=== PATIENT | female | born 1970 | race Caucasian/White ===

== ENCOUNTER 2016-10-08 18:07 | Emergency (ER) | payer BC, SELFPAY ==
[2016-10-08] MEDS ORDERED: HYDROcodone/Acetaminophen 10/325 mg Tablet ONE (18:49)
[2016-10-08] MEDS ORDERED: Ibuprofen 800 MG TAB ONE (18:50)
--- NOTE | 2016-10-09 05:45 | RAD ---
LEFT WRIST THREE VIEWS O1 No fracture was seen. The carpal bones all appeared intact, and the carpal relations are normal. IMPRESSION: No acute bony findings. POS: HOME
--- NOTE | 2016-10-09 05:50 | RAD ---
LEFT ANKLE THREE VIEWS O17 Soft tissue swelling is present. No acute fractures were seen. The ankle joint appears intact. Tw o metallic flecks are seen beneath the medial malleolus. I cannot tell if they are film artifact or real. IMPRESSION: Soft tissue swelling. POS: HOME
== END 2016-10-08 19:22 | disposition home or self-care (01) ==
LOC: BURERS 18:07
DX: S63.502A Unspecified sprain of left wrist, initial encounter (principal); S90.02XA Contusion of left ankle, initial encounter; S90.512A Abrasion, left ankle, initial encounter; S90.812A Abrasion, left foot, initial encounter; I10 Essential (primary) hypertension; V86.69XA Passenger of other special all-terrain or other off-road motor vehicle injured in nontraffic accident, initial encounter; Y92.828 Other wilderness area as the place of occurrence of the external cause
CPT/HCPCS: 29515

== ENCOUNTER 2016-10-21 18:22 | Emergency (ER) | payer SELFPAY ==
[2016-10-21] MEDS ORDERED: Sulfameth/Trimethoprim DS 800-160mg TAB ONE (18:52)
[2016-10-21] MEDS ORDERED: cefTRIAXone\\ROCEPHIN 1 GM VIAL ONE (18:52)
[2016-10-21] MEDS ORDERED: Lidocaine 1% 20 ML MDV ONE (18:52)
[2016-10-21] MEDS ORDERED: Adacel (T-DAP) 0.5 ML VIAL ONE (19:33)
== END 2016-10-21 20:00 | disposition home or self-care (01) ==
LOC: BURERS 18:22
DX: L03.116 Cellulitis of left lower limb (principal); I10 Essential (primary) hypertension; Z79.899 Other long term (current) drug therapy; Z86.73 Personal history of transient ischemic attack (TIA), and cerebral infarction without residual deficits
CPT/HCPCS: 87070; 87205; 90471; 90715; 96372; J0696; J2001

== ENCOUNTER 2016-10-23 14:24 | Emergency (ER) | payer SELFPAY ==
[2016-10-23] MEDS ORDERED: Bacitracin Zinc 1 Packet ONE (14:32)
== END 2016-10-23 14:47 | disposition home or self-care (01) ==
LOC: BURERS 14:24
DX: L03.116 Cellulitis of left lower limb (principal); M76.62 Achilles tendinitis, left leg; I10 Essential (primary) hypertension
CPT/HCPCS: 99283

== ENCOUNTER 2017-01-07 13:29 | Emergency (ER) | payer SELFPAY | END 2017-01-07 16:00 | disposition home or self-care (01) | LOC: BURERS 13:29 | DX: L02.212 Cutaneous abscess of back [any part, except buttock and flank] (principal); I10 Essential (primary) hypertension | CPT/HCPCS: 10060 ==

== ENCOUNTER 2017-01-11 06:36 | Emergency (ER) | payer SELFPAY | END 2017-01-11 07:14 | disposition home or self-care (01) | LOC: BURERS 06:36 | DX: Z48.817 Encounter for surgical aftercare following surgery on the skin and subcutaneous tissue (principal); I10 Essential (primary) hypertension | CPT/HCPCS: 99282 ==

== ENCOUNTER 2017-05-26 11:01 | Emergency (ER) | payer SELFPAY ==
--- NOTE | 2017-05-26 20:01 | RAD ---
RIGHT HAND THREE VIEWS: Date: 05-26-17 FINDINGS: A slightly comminuted nondisplaced fracture is seen at the base of the fifth metacarpal. The remainde r of the hand and wrist appear intact. The carpal relations appear normal. IMPRESSION: Relatively nondisplaced fracture at the base of the fifth metacarpal. Code T POS: HOME
== END 2017-05-26 11:30 | disposition home or self-care (01) ==
LOC: BURERS 11:01
DX: S62.346A Nondisplaced fracture of base of fifth metacarpal bone, right hand, initial encounter for closed fracture (principal); I10 Essential (primary) hypertension; Z86.73 Personal history of transient ischemic attack (TIA), and cerebral infarction without residual deficits; W54.1XXA Struck by dog, initial encounter
CPT/HCPCS: 26600

== ENCOUNTER 2017-07-13 10:40 | Emergency (ER) | payer SELFPAY ==
--- NOTE | 2017-07-13 19:56 | RAD ---
RIGHT HAND FOUR VIEWS 07/13/17 Comparison is made with the 05/26/17 study. Fracture at the base of the fifth metacarpal is again seen and shows signs of healing. I do not see a ny evidence of refracture or new fractures since the last exam. The remainder of the hand and wrist a ppears normal. IMPRESSION: Healing fracture at the base of the fifth metacarpal. No evidence of more recent bony injury. POS: HOME
== END 2017-07-13 11:13 | disposition home or self-care (01) ==
LOC: BURERS 10:40
DX: S62.316A Displaced fracture of base of fifth metacarpal bone, right hand, initial encounter for closed fracture (principal); I10 Essential (primary) hypertension; Z86.73 Personal history of transient ischemic attack (TIA), and cerebral infarction without residual deficits; W18.30XA Fall on same level, unspecified, initial encounter

== ENCOUNTER 2018-08-24 01:28 | Emergency (ER) | payer SELFPAY ==
[2018-08-24] MEDS ORDERED: Sulfameth/Trimethoprim DS 800-160mg TAB ONE (01:41)
[2018-08-24] MEDS ORDERED: Cephalexin 500 MG CAP ONE (01:41)
== END 2018-08-24 01:46 | disposition home or self-care (01) ==
LOC: BURERS 01:28
DX: L03.114 Cellulitis of left upper limb (principal); I10 Essential (primary) hypertension; Z86.73 Personal history of transient ischemic attack (TIA), and cerebral infarction without residual deficits; Z87.891 Personal history of nicotine dependence
CPT/HCPCS: 99283

== ENCOUNTER 2021-05-18 04:33 | Emergency (ER) | payer SELFPAY ==
[2021-05-18 05:19] LABS: Bilirubin Negative (Negative); Blood, Urine Trace (Negative); Clarity Cloudy (Clear); Glucose, Urine (Dipstick) Negative (Negative); Ketone, Urine Negative (Negative); Leukocyte Large (Negative); Nitrite Positive (Negative); Protein, Urine (Dipstick) Trace mg/dL (Neg-Trace); Specific Gravity, Urine 1.015 (1.005-1.030); Urobilinogen 0.2 mg/dL (Less than 2); pH, Urine 6.5 (5.0-9.0)
[2021-05-18] MEDS ORDERED: cefTRIAXone\\ROCEPHIN 1 GM VIAL ONE (05:26)
[2021-05-18] MEDS ORDERED: Lidocaine 1% PF 5 ML VIAL ONE (05:27)
[2021-05-18 05:30] LABS: Bacteria/HPF 3+ HPF (None Seen); RBC/HPF 0-3 HPF (0-3); Yeast-Budding None Seen HPF (None Seen); Yeast-Hyphae None Seen HPF (None Seen)
[2021-05-18 05:31] LABS: Mucous/LPF 1+ LPF (<2+)
[2021-05-18] MEDS ORDERED: Ciprofloxacin 500 MG TAB ONE (05:36)
[2021-05-18 18:36] LABS: SARS-CoV-2 PCR by NAA DETECTED (NotDetected)
== END 2021-05-18 05:47 | disposition home or self-care (01) ==
LOC: BURERS 04:33
DX: U07.1 COVID-19 (principal); J18.9 Pneumonia, unspecified organism; N10 Acute pyelonephritis; I10 Essential (primary) hypertension; Z86.73 Personal history of transient ischemic attack (TIA), and cerebral infarction without residual deficits; Z87.891 Personal history of nicotine dependence; Z79.899 Other long term (current) drug therapy
CPT/HCPCS: 71046; 81003; 81015; 87086; 96372; J0696; U0003; U0005

== ENCOUNTER 2021-05-21 16:30 | Emergency (ER) | payer SELFPAY ==
[2021-05-21] MEDS ORDERED: Ondansetron PF 4 MG/2 ML Vial ONE (17:50)
[2021-05-21 17:56] LABS: #Eosinphils 0.1 thou/uL (0.0-0.7); #Lymphocytes 1.3 thou/uL (1.20-3.40); #Monocytes 0.5 thou/uL (0.11-0.59); #Neutrophils 4.4 thou/uL (1.40-6.50); %Basophils 0.4 % (0.0-1.0); %Lymphocytes 19.8 % (21.0-51.0); %Monocytes 8.2 % (0.0-10.0); %Neutrophils 69.6 % (42.0-75.0); Hemoglobin 14.1 g/dL (12.0-16.0); Mean Corpuscular HGB CONC 33.5 g/dL (32.0-36.0); Mean Corpuscular Hemoglobin 29.4 pg (27.0-31.0); Mean Corpuscular Volume 87.7 fL (78.0-98.0); Mean Platelet Volume 6.9 fL (7.4-10.4); Platelet Count 262 thou/uL (130-400); RBC Distribution Width 11.6 % (11.5-14.5); Red Blood Cell (RBC) Count 4.79 mill/uL (4.20-5.40); White Blood Cell (WBC) Count 6.3 thou/uL (4.8-10.8)
[2021-05-21 18:06] LABS: Bilirubin Negative (Negative); Blood, Urine Negative (Negative); Clarity Clear (Clear); Glucose, Urine (Dipstick) Negative (Negative); Ketone, Urine Negative (Negative); Leukocyte Negative (Negative); Nitrite Negative (Negative); Protein, Urine (Dipstick) Negative (Neg-Trace); Specific Gravity, Urine 1.015 (1.005-1.030); Urobilinogen 0.2 mg/dL (Less than 2)
[2021-05-21 18:08] LABS: Pregnancy Test - Urine (BHCG) Negative (Negative); Pregu Control Background? CLEAR/WHITE (CLR/WHITE); Pregu Control Bar Appear? YES (CONTROL BAR); Specific Gravity 1.015 (1.002-1.036)
[2021-05-21 18:11] LABS: ALT (SGPT) 59 U/L (8-55); AST (SGOT) 65 U/L (5-34); Albumin 3.9 g/dL (3.5-5.0); Alkaline Phosphatase 79 U/L (40-110); Anion Gap 16 mmol/L (10-20); BUN (Urea Nitrogen) 8 mg/dL (7.0-18.7); Bilirubin, Total 0.5 mg/dL (0.2-1.2); Calc. Creatinine Clearance 0 mL/min (70-130); Calcium 8.9 mg/dL (7.8-10.44); Carbon Dioxide 26 mmol/L (22-29); Chloride 100 mmol/L (98-107); Globulin 3.2 g/dL (2.4-3.5); Glucose 94 mg/dL (70-105); Potassium 3.9 mmol/L (3.5-5.1); Protein, Total 7.1 g/dL (6.0-8.3); Sodium 138 mmol/L (136-145)
== END 2021-05-21 19:29 | disposition home or self-care (01) ==
LOC: BURERS 16:30
DX: U07.1 COVID-19 (principal); E86.0 Dehydration; L30.9 Dermatitis, unspecified; I10 Essential (primary) hypertension; Z86.73 Personal history of transient ischemic attack (TIA), and cerebral infarction without residual deficits; Z87.891 Personal history of nicotine dependence
CPT/HCPCS: 36415; 71045; 80053; 81003; 81025; 83605; 85025; 96374; J2405; J7620

== ENCOUNTER 2021-07-08 08:15 | Emergency (ER) | payer SELFPAY ==
[2021-07-08 08:50] LABS: #Basophils 0.1 thou/uL (0.0-0.2); #Eosinphils 0.2 thou/uL (0.0-0.7); #Lymphocytes 0.9 thou/uL (1.20-3.40); #Monocytes 0.7 thou/uL (0.11-0.59); %Basophils 0.6 % (0.0-1.0); %Eosinophils 2.1 % (0.0-10.0); %Lymphocytes 7.8 % (21.0-51.0); %Monocytes 6.4 % (0.0-10.0); Hemoglobin 12.8 g/dL (12.0-16.0); Mean Corpuscular Hemoglobin 29.7 pg (27.0-31.0); Platelet Count 272 thou/uL (130-400); RBC Distribution Width 13.2 % (11.5-14.5); Red Blood Cell (RBC) Count 4.32 mill/uL (4.20-5.40); White Blood Cell (WBC) Count 10.8 thou/uL (4.8-10.8)
[2021-07-08 09:04] LABS: ALT (SGPT) 26 U/L (8-55); AST (SGOT) 23 U/L (5-34); Albumin 4.5 g/dL (3.5-5.0); Alkaline Phosphatase 59 U/L (40-110); Anion Gap 15 mmol/L (10-20); BUN (Urea Nitrogen) 13 mg/dL (7.0-18.7); Bilirubin, Total 1.1 mg/dL (0.2-1.2); Calc. Creatinine Clearance 0 mL/min (70-130); Calcium 8.9 mg/dL (7.8-10.44); Carbon Dioxide 21 mmol/L (22-29); Chloride 107 mmol/L (98-107); Globulin 3.2 g/dL (2.4-3.5); Glucose 95 mg/dL (70-105); Potassium 3.9 mmol/L (3.5-5.1); Protein, Total 7.7 g/dL (6.0-8.3); Sodium 139 mmol/L (136-145)
[2021-07-08 09:10] LABS: Acetaminophen Less than 6.0 mcg/mL (10.0-30.0); Alcohol Less than 10 mg/dL (Less than 10); Salicylate Less than 8.0 mg/dL (15.0-30.0)
[2021-07-08 09:11] LABS: BHCG - Serum Negative (NEGATIVE); Pregs Control Background? CLEAR/WHITE (CLR/WHITE); Pregs Control Bar Appear? YES (CONTROL BAR)
[2021-07-08] MEDS ORDERED: Ketorolac Tromethamine 30 MG/ML VIAL ONE (10:10)
[2021-07-08] MEDS ORDERED: cefTRIAXone\\ROCEPHIN 2 GM VIAL ONE (10:10)
[2021-07-08 10:13] LABS: Bilirubin Negative (Negative); Blood, Urine Negative (Negative); Clarity Slightly Cloudy (Clear); Glucose, Urine (Dipstick) Negative (Negative); Ketone, Urine 40 mg/dL (Negative); Leukocyte Negative (Negative); Nitrite Negative (Negative); Protein, Urine (Dipstick) Negative (Neg-Trace); Specific Gravity, Urine 1.025 (1.005-1.030); Urobilinogen 0.2 mg/dL (Less than 2); pH, Urine 6.5 (5.0-9.0)
[2021-07-08 10:24] LABS: Amphetamine Detected (NotDetected); Barbiturates Screen Not Detected (NotDetected); Benzodiazepine Screen Not Detected (NotDetected); Cocaine Metabolite Screen Not Detected (NotDetected); Medtox Control Line Valid? VALID (VALID); Methadone Not Detected (NotDetected); Methamphetamine Detected (NotDetected); Opiate Screen Not Detected (NotDetected); Oxycodone Screen Not Detected (NotDetected); Phencyclidine (PCP) Not Detected (NotDetected); THC/Cannabinoid Screen Not Detected (NotDetected); Tricyclic Screen Not Detected (NotDetected)
[2021-07-08] MEDS ORDERED: Lisinopril 20 MG TAB ONE (10:39)
== END 2021-07-08 11:01 | disposition home or self-care (01) ==
LOC: BURERS 08:15
DX: I10 Essential (primary) hypertension (principal); L03.116 Cellulitis of left lower limb; R00.0 Tachycardia, unspecified; Z86.73 Personal history of transient ischemic attack (TIA), and cerebral infarction without residual deficits; Z87.891 Personal history of nicotine dependence
CPT/HCPCS: 71045; 80053; 80306; 80307; 81003; 83880; 84484; 84703; 85025; 93005; 96365; 96375; J0696; J1885

== ENCOUNTER 2023-03-10 19:10 | Emergency (ER) | payer OTHER ==
[2023-03-10 19:32] LABS: #Basophils 0.1 thou/uL (0.0-0.2); #Eosinphils 0.1 thou/uL (0.0-0.7); #Monocytes 0.6 thou/uL (0.11-0.59); #Neutrophils 10.1 thou/uL (1.40-6.50); %Basophils 0.5 % (0.0-1.0); %Lymphocytes 8.5 % (21.0-51.0); %Monocytes 5.2 % (0.0-10.0); %Neutrophils 84.9 % (42.0-75.0); Hematocrit 45.6 % (36.0-47.0); Mean Corpuscular HGB CONC 32.9 g/dL (32.0-36.0); Mean Corpuscular Hemoglobin 29.7 pg (27.0-31.0); Mean Corpuscular Volume 90.2 fl (78.0-98.0); Mean Platelet Volume 7.5 fL (7.4-10.4); Platelet Count 281 10x3/uL (130-400); RBC Distribution Width 11.5 % (11.5-14.5); Red Blood Cell (RBC) Count 5.06 mill/uL (4.20-5.40); White Blood Cell (WBC) Count 11.9 10x3/uL (4.8-10.8)
[2023-03-10 19:50] LABS: ALT (SGPT) 20 U/L (8-55); AST (SGOT) 17 U/L (5-34); Albumin 4.1 g/dL (3.5-5.0); Alkaline Phosphatase 58 U/L (40-110); Anion Gap 14 mmol/L (10-20); BUN (Urea Nitrogen) 14 mg/dL (7.0-18.7); Bilirubin, Total 0.8 mg/dL (0.2-1.2); Calc. Creatinine Clearance 0 mL/min (70-130); Calcium 9.1 mg/dL (7.8-10.44); Carbon Dioxide 21 mmol/L (22-29); Chloride 107 mmol/L (98-107); Estimated GFR 78; Globulin 3.2 g/dL (2.4-3.5); Glucose 94 mg/dL (70-105); Potassium 3.8 mmol/L (3.5-5.1); Protein, Total 7.3 g/dL (6.0-8.3); Sodium 138 mmol/L (136-145)
[2023-03-10 19:51] LABS: Troponin I 0.042 ng/mL (< 0.028)
[2023-03-10] MEDS ORDERED: Nitroglycerin 0.4 MG TAB 1 EACH ONE ×2 (20:27→23:16)
[2023-03-10] MEDS ORDERED: Furosemide 100 MG/10 ML VIAL ONE (20:27)
[2023-03-10] MEDS ORDERED: Nitroglycerin 2% Ointment 1 INCH/1 GM Packet ONE (20:27)
[2023-03-10] MEDS ORDERED: Aspirin Chewable 81 MG TAB ONE (20:27)
[2023-03-10 23:00] LABS: Bilirubin Negative (Negative); Blood, Urine Negative (Negative); Clarity Slightly Cloudy (Clear); Glucose, Urine (Dipstick) Negative (Negative); Ketone, Urine Negative (Negative); Leukocyte Trace (Negative); Nitrite Positive (Negative); Protein, Urine (Dipstick) Negative (Neg-Trace); Urobilinogen 0.2 mg/dL (Less than 2); pH, Urine 5.5 (5.0-9.0)
[2023-03-10 23:11] LABS: CAUTI Indications for Culture Dysuria,urgency,freq; RBC/HPF 0-3 HPF (0-3)
[2023-03-10 23:12] LABS: Bacteria/HPF 1+ HPF (None Seen); Mucous/LPF Few LPF (<2+)
[2023-03-10 23:14] LABS: Urine Culture Reflex Yes Yes
[2023-03-10 23:17] LABS: Amphetamine Detected (NotDetected); Barbiturates Screen Not Detected (NotDetected); Benzodiazepine Screen Not Detected (NotDetected); Cocaine Metabolite Screen Not Detected (NotDetected); Methadone Not Detected (NotDetected); Methamphetamine Detected (NotDetected); Opiate Screen Not Detected (NotDetected); Oxycodone Screen Not Detected (NotDetected); Phencyclidine (PCP) Not Detected (NotDetected); THC/Cannabinoid Screen Not Detected (NotDetected); Tricyclic Screen Not Detected (NotDetected)
[2023-03-11] MEDS ORDERED: Cephalexin 250 MG CAP ONE (00:08)
== END 2023-03-11 01:05 | disposition short-term general hospital (02) ==
LOC: BURERS 19:10
DX: I11.0 Hypertensive heart disease with heart failure (principal); I50.9 Heart failure, unspecified; N39.0 Urinary tract infection, site not specified; Z87.891 Personal history of nicotine dependence; Z86.73 Personal history of transient ischemic attack (TIA), and cerebral infarction without residual deficits; Z79.899 Other long term (current) drug therapy
CPT/HCPCS: 71045; 80053; 80306; 81001; 83880; 84484; 85025; 87077; 87086; 87186; 93005; 96374; J1940

== ENCOUNTER 2023-06-03 17:34 | Emergency (ER) | payer MEDICAID ==
[2023-06-03 18:26] LABS: #Basophils 0.1 thou/uL (0.0-0.2); #Eosinphils 0.3 thou/uL (0.0-0.7); #Lymphocytes 1.1 thou/uL (1.20-3.40); #Monocytes 0.5 thou/uL (0.11-0.59); #Neutrophils 4.6 thou/uL (1.40-6.50); %Eosinophils 5.1 % (0.0-10.0); %Lymphocytes 16.6 % (21.0-51.0); %Neutrophils 69.4 % (42.0-75.0); Hematocrit 40.3 % (36.0-47.0); Hemoglobin 13.4 g/dL (12.0-16.0); Mean Corpuscular HGB CONC 33.4 g/dL (32.0-36.0); Mean Corpuscular Hemoglobin 29.6 pg (27.0-31.0); Mean Corpuscular Volume 88.6 fl (78.0-98.0); Mean Platelet Volume 6.4 fL (7.4-10.4); Platelet Count 296 10x3/uL (130-400); RBC Distribution Width 12.9 % (11.5-14.5); Red Blood Cell (RBC) Count 4.55 mill/uL (4.20-5.40); White Blood Cell (WBC) Count 6.6 10x3/uL (4.8-10.8)
[2023-06-03 18:39] LABS: ALT (SGPT) 27 U/L (8-55); AST (SGOT) 17 U/L (5-34); Albumin 4.5 g/dL (3.5-5.0); Alkaline Phosphatase 62 U/L (40-110); Anion Gap 15 mmol/L (10-20); BUN (Urea Nitrogen) 20 mg/dL (9.8-20.1); Bilirubin, Total 0.4 mg/dL (0.2-1.2); Calc. Creatinine Clearance 0 mL/min (70-130); Carbon Dioxide 19 mmol/L (22-29); Chloride 109 mmol/L (98-107); Estimated GFR 48; Globulin 3.1 g/dL (2.4-3.5); Glucose 111 mg/dL (70-105); Potassium 3.8 mmol/L (3.5-5.1); Protein, Total 7.6 g/dL (6.0-8.3); Sodium 139 mmol/L (136-145)
[2023-06-03 18:59] LABS: SARS-CoV-2 NAA Rapid Test Not Detected (NotDetected)
== END 2023-06-03 19:27 | disposition home or self-care (01) ==
LOC: BURERS 17:34
DX: B34.9 Viral infection, unspecified (principal); I11.0 Hypertensive heart disease with heart failure; I50.9 Heart failure, unspecified; Z87.891 Personal history of nicotine dependence
CPT/HCPCS: 71046; 80053; 83880; 85025; 85379; 87081; 87430

== ENCOUNTER 2024-04-23 04:24 | Emergency (ER) | payer MEDICAID, SELFPAY | END 2024-04-23 05:15 | disposition left against medical advice (07) | LOC: BURERS 04:24 | DX: Z53.21 Procedure and treatment not carried out due to patient leaving prior to being seen by health care provider (principal) ==

== ENCOUNTER 2025-03-02 14:15 | Emergency (ER) | payer OTHER ==
[~2025-03-02 14:15] MED LIST: Iopamidol 370 76% 100 ML VIAL ONE
[2025-03-02] MEDS ORDERED: Ondansetron PF 4 MG/2 ML Vial ONE (14:47)
[2025-03-02 15:22] LABS: ALT (SGPT) 29 U/L (Less than 34); AST (SGOT) 58 U/L (11-34); Albumin 3.7 g/dL (3.1-4.5); Alkaline Phosphatase 71 U/L (40-110); Anion Gap 16 mmol/L (10-20); BUN (Urea Nitrogen) 14 mg/dL (9.8-20.1); Bilirubin, Total 0.4 mg/dL (0.3-1.2); Calc. Creatinine Clearance 0 mL/min (70-130); Calcium 8.1 mg/dL (7.8-10.44); Carbon Dioxide 22 mmol/L (22-29); Chloride 101 mmol/L (98-107); Globulin 3.3 g/dL (2.4-3.5); Glucose 105 mg/dL (70-105); Magnesium 1.7 mg/dL (1.6-2.6); Potassium 2.8 mmol/L (3.5-5.1); Sodium 136 mmol/L (136-145)
[2025-03-02 15:31] LABS: #Basophils 0.0 thou/uL (0.0-0.2); #Eosinophils 0.0 thou/uL (0.0-0.7); #Lymphocytes 0.5 thou/uL (1.20-3.40); #Monocytes 0.1 thou/uL (0.11-0.59); #Neutrophils 2.5 thou/uL (1.40-6.50); %Basophils 0.5 % (0.0-1.0); %Eosinophils 0.0 % (0.0-10.0); %Lymphocytes 16.6 % (21.0-51.0); %Monocytes 3.2 % (0.0-10.0); %Neutrophils 79.6 % (42.0-75.0); Hematocrit 35.6 % (36.0-47.0); Hemoglobin 13.1 g/dL (12.0-16.0); MDiff Complete? YES; Mean Corpuscular Hemoglobin 30.3 pg (27.0-31.0); Mean Corpuscular Volume 82.2 fl (78.0-98.0); Platelet Count 143 10x3/uL (130-400); Red Blood Cell (RBC) Count 4.33 mill/uL (4.20-5.40); White Blood Cell (WBC) Count 3.1 10x3/uL (4.8-10.8)
[2025-03-02] MEDS ORDERED: Magnesium 2 GM/50 ML BAG (IN WATER) ONE (16:53)
[2025-03-02] MEDS ORDERED: Potassium Bicarbonate/Cit Ac 20 MEQ TAB ONE (17:01)
[2025-03-02] MEDS ORDERED: NS 0.9% w/ 20 MEQ KCL 1,000 ML ONE (19:06)
[2025-03-02] MEDS ORDERED: Ciprofloxacin Lactate D5W 400 mg (200 mL) BAG ONE (21:15)
[2025-03-02] MEDS ORDERED: metroNIDAZOLE 500 MG (100 mL) BAG ONE (21:15)
[2025-03-02 21:19] LABS: Glucose, Urine (Dipstick) Negative (Negative); Leukocyte Negative (Negative); Protein, Urine (Dipstick) 30 mg/dL (Neg-Trace); Specific Gravity, Urine 1.015 (1.005-1.030)
[2025-03-02 21:23] LABS: Bacteria/HPF 1+ HPF (None Seen); CAUTI Indications for Culture Dysuria,urgency,freq; RBC/HPF 0-3 HPF (0-3); WBC/HPF 0-3 HPF (0-3)
[2025-03-02 21:24] LABS: Urine Culture Reflex No No
[2025-03-03] MEDS ORDERED: Ondansetron PF 4 MG/2 ML Vial ONE (04:35)
[2025-03-03] MEDS ORDERED: Ibuprofen 200 MG TAB ONE (04:35)
[2025-03-03] MEDS ORDERED: Acetaminophen 500 MG TAB ONE (04:37)
[2025-03-03] MEDS ORDERED: metroNIDAZOLE 500 MG (100 mL) BAG ONE ×2 (06:01→09:05)
[2025-03-03] MEDS ORDERED: Ciprofloxacin Lactate D5W 400 mg (200 mL) BAG ONE (07:10)
[2025-03-03 07:18] LABS: #Basophils 0.0 thou/uL (0.0-0.2); #Eosinophils 0.0 thou/uL (0.0-0.7); #Lymphocytes 0.6 thou/uL (1.20-3.40); #Monocytes 0.1 thou/uL (0.11-0.59); #Neutrophils 1.7 thou/uL (1.40-6.50); %Basophils 1.3 % (0.0-1.0); %Eosinophils 0.1 % (0.0-10.0); %Lymphocytes 23.9 % (21.0-51.0); %Monocytes 3.6 % (0.0-10.0); %Neutrophils 71.2 % (42.0-75.0); Hematocrit 32.7 % (36.0-47.0); Hemoglobin 12.4 g/dL (12.0-16.0); Mean Corpuscular Hemoglobin 31.0 pg (27.0-31.0); Mean Corpuscular Volume 82.0 fl (78.0-98.0); Platelet Count 102 10x3/uL (130-400); Red Blood Cell (RBC) Count 3.99 mill/uL (4.20-5.40); White Blood Cell (WBC) Count 2.4 10x3/uL (4.8-10.8)
[2025-03-03 07:30] LABS: ALT (SGPT) 30 U/L (Less than 34); AST (SGOT) 63 U/L (11-34); Albumin 3.3 g/dL (3.1-4.5); Alkaline Phosphatase 62 U/L (40-110); Anion Gap 14 mmol/L (10-20); BUN (Urea Nitrogen) 10 mg/dL (9.8-20.1); Bilirubin, Total 0.4 mg/dL (0.3-1.2); Calc. Creatinine Clearance 0 mL/min (70-130); Calcium 7.5 mg/dL (7.8-10.44); Carbon Dioxide 21 mmol/L (22-29); Chloride 104 mmol/L (98-107); Globulin 2.9 g/dL (2.4-3.5); Glucose 82 mg/dL (70-105); Potassium 3.0 mmol/L (3.5-5.1); Sodium 136 mmol/L (136-145)
[2025-03-03 07:51] LABS: MDiff Complete? YES; Platelet Adequacy Comment Appears Decreased
[2025-03-03] MEDS ORDERED: NS 0.9% w/ 20 MEQ KCL 1,000 ML ONE (09:08)
== END 2025-03-03 11:40 | disposition short-term general hospital (02) ==
LOC: EDBD → BURERS 14:15
DX: K52.9 Noninfective gastroenteritis and colitis, unspecified (principal); D64.9 Anemia, unspecified; E86.0 Dehydration; E87.6 Hypokalemia; I11.0 Hypertensive heart disease with heart failure; I50.9 Heart failure, unspecified; Z86.73 Personal history of transient ischemic attack (TIA), and cerebral infarction without residual deficits
CPT/HCPCS: 36415; 74177; 80053; 81001; 83605; 83735; 83880; 85025; 96365; 96367; 96375; 96376; J0744; J2405; J2919; J3475; J3480; Q9967